=== PATIENT | male | born 1980 | race Caucasian/White ===

== ENCOUNTER 2018-09-16 00:05 | Emergency (ER) | payer BC, OTHER ==
[~2018-09-16] VITALS: Ht 172.7 cm; Wt 81.6 kg
[~2018-09-16 00:05] MED LIST: DILANTIN
[2018-09-16 00:14] VITALS: BP 118/66
--- NOTE | 2018-09-16 00:14 | NUR ---
PT AMBULATED TO BED 09.
--- NOTE | 2018-09-16 00:15 | NUR ---
PT PRESENTED ER WITH C/O POST SEIZURE X 1 HOUR. PT STATED THAT PT WAS COMBATIVE AND DID NOT REMEMBER HER. PT WANTED TO USE THE RESTROOM OUTSIDE. CONFUSED. PT AT THIS TIME IS A/O X 4. PERRLA. PT HAS N/V. SEIZURE PRECAUTION IMPLEMENTED AT THIS TIME. KNA AND MEDICAL HX OF SEIZURES. PT STATED HE ONLY HAS SEIZURES WHEN HE IS ASLEEP. PT HAS A PORTILLO. PAIN LEVEL AT THIS TIME IS 7/10. SKIN IS PINK/WARM/DRY; VSS; PATIENT POSITIONED FOR COMFORT; HOB ELEVATED; BEDRAILS UP X2; BED DOWN. ER MD MADE AWARE OF PT STATUS.
[2018-09-16] MEDS ORDERED: NACL 0.9% 1,000 ML IV ONE ×2 (00:25→05:30)
[2018-09-16 00:43] LABS: BASOPHILS # (AUTO) 0.1 K/uL (0.00-0.22); BASOPHILS % (AUTO) 0.7 % (0.0-2.0); HEMOGLOBIN 15.3 g/dL (12.0-18.0); LYMPHOCYTES # (AUTO) 2.2 K/uL (2.0-11.5); LYMPHOCYTES % (AUTO) 24.6 % (20.5-51.1); MEAN CORPUSCULAR HEMOGLOBIN 31 pg (27-31); MEAN CORPUSCULAR HGB CONC 34 g/dL (33-37); MEAN CORPUSCULAR VOLUME 91.6 fL (80-94); MONOCYTES # (AUTO) 0.5 K/uL (0.8-1.0); MONOCYTES % (AUTO) 5.5 % (1.7-9.3); NEUTROPHILS # (AUTO) 4.2 K/uL (1.8-7.7); NEUTROPHILS % (AUTO) 46.8 % (42.2-75.2); PLATELET COUNT (AUTO) 270 K/uL (140-450); RED BLOOD CELL COUNT(AUTO) 4.91 MIL/uL (4.20-6.10); RED CELL DISTRIBUTION WIDTH 12.7 % (11.6-13.7)
[2018-09-16 00:55] LABS: EOSINOPHILS % (AUTO) 22.4 % (0.0-4.0)
[2018-09-16 00:58] LABS: ANION GAP 7.7 (8-16); CARBON DIOXIDE 31.1 mmol/L (21-32); CREATININE 1.1 mg/dL (0.7-1.3); POTASSIUM 3.8 mmol/L (3.5-5.1)
[2018-09-16 01:02] LABS: ACETAMINOPHEN < 0.5 ug/ml (10-30)
[2018-09-16 01:03] LABS: TOTAL BILIRUBIN 0.2 mg/dL (0.0-1.0)
[2018-09-16] MEDS ORDERED: PHENYTOIN 1,000 MG in NACL 0.9% 100 ML IV ONE (01:45)
--- NOTE | 2018-09-16 02:00 | NUR ---
patient going to ct at this time
[2018-09-16] MEDS ORDERED: PHENYTOIN 250 MG/5 ML VIAL IV ONE (02:04)
[2018-09-16] MEDS ORDERED: ACETAMINOPHEN EXTRA STRENGTH 500 MG TAB PO ONE (02:30)
[2018-09-16 03:17] LABS: BARBITURATE, URINE NEG. ng/ml (NEG <=200); BENZODIAZEPINE, URINE NEG. ng/mL (NEG <=200); CANNABINOID, URINE NEG. ng/mL (NEG <=50); COCAINE, URINE NEG. ng/mL (NEG <=300); OPIATE, URINE NEG. ng/mL (NEG <=2000); PHENCYCLIDINE SCREEN,URINE NEG. ng/mL (NEG <=25)
[2018-09-16 04:05] VITALS: BP 118/59
--- NOTE | 2018-09-16 05:16 | NUR ---
Patient discharged with v/s stable. Written and verbal after care instructions given and explained. Patient verbalized understanding. Ambulatory with steady gait. All questions addressed prior to discharge. Advised to follow up with PMD.
== END 2018-09-16 04:05 | disposition home or self-care (01) ==
LOC: MED 00:05
DX: R56.9 Unspecified convulsions (principal); R89.2 Abnormal level of other drugs, medicaments and biological substances in specimens from other organs, systems and tissues
CPT/HCPCS: 36415; 70450; 80053; 80185; 80305; 85025; 96365; 99284; G0480; G0482; J1165; J7030